=== PATIENT | male | born 1990 | race Caucasian/White ===

== ENCOUNTER 2020-12-10 08:27 | Day surgery (SDC) | payer OTHER ==
[~2020-12-10] VITALS: Ht 190.5 cm; Wt 111.3 kg
[2020-12-10] MEDS ORDERED: PROZAC40 MG PO (09:16)
[2020-12-10] MEDS ORDERED: WELLBUTRIN XL150 MG PO (09:17)
[2020-12-10] MEDS ORDERED: NEURONTIN600 MG/TAB PO (09:18)
[2020-12-10 09:21] VITALS: BP 156/87; PULSE 67; TEMP 96.4
[2020-12-10] MEDS ORDERED: NORCO 325 MG-51 TAB PO (10:57)
[2020-12-10 11:33] VITALS: BP 130/66; PULSE 64; TEMP 97.8
--- NOTE | 2020-12-10 11:33 | NUR ---
PATIENT BROUGHT BACK [place] [facility] [place] [facility] [place] [facility]. REPORT RECIEVED FROM EXCEPTIONAL NEEDS TEACHER CHRIS. PATIENT IS ALERT AND ORIENTED, AT BEDSIDE. DENIES PAIN OR NAUSEA. REQUESTS APPLEJUICE AT THIS TIME. CALL [facility] WITHIN REACH, WILL CONITNUE TO MONITOR.
[2020-12-10 11:45] VITALS: BP 131/81; PULSE 95
--- NOTE | 2020-12-10 11:45 | NUR ---
PATIENT TOLERATING FLUIDS AT THIS TIME, REQUESTS CRACKERS. INCISION TO GROIN, CDI. WILL CONTINUE TO MONITOR.
[2020-12-10 12:00] VITALS: BP 138/77; PULSE 79
[2020-12-10 12:15] VITALS: BP 136/74; PULSE 54
--- NOTE | 2020-12-10 12:15 | NUR ---
PATIENT STATES HE HAS PAIN OF 4/10 TO GROIN. STATES IT FEELS TIGHT. WILL ADMINISTER PAIN MEDICATION PER ORDERS. TOLERATING FOOD AND DRINK WITHOUT NAUSEA.
[2020-12-10 12:45] VITALS: BP 156/83; PULSE 58
--- NOTE | 2020-12-10 12:45 | NUR ---
PATIENT STATES HE NEEDS TO USE RESTROOM, AMBULATED WITHOUT DIFFICULTY. URINATED WITHOUT DIFFICULTY. WILL MONITOR.
--- NOTE | 2020-12-10 13:20 | NUR ---
PATIENT STATES HE WILL STOP BY OFFICE TO COLLECT NOTE. THIS RN WAS UNABLE TO CONTACT OFFICE IN REGARDS TO FOLLOW UP APPOINTMENT. OFFICE NUMBER PROVIDED. DISCHARGE INSTRUCTIONS REVIEWED AND SIGNED, ALL QUESTIONS ANSWERED. ADRIANA STATES PAIN IS MUCH IMPROVED.
--- NOTE | 2020-12-10 13:28 | NUR ---
PATIENT BROUGHT DOWN TO LOBBY VIA WHEEL CHAIR. PICKED PATIENT UP AT FRONT DOOR. HELPED INTO PASSENGER SEAT. ALL BELONGINGS IN HAND.
== END 2020-12-10 13:28 | disposition home or self-care (01) ==
LOC: SDCO 08:27
DX: N99.89 Other postprocedural complications and disorders of genitourinary system (principal); N50.812 Left testicular pain; F41.9 Anxiety disorder, unspecified; F42.9 Obsessive-compulsive disorder, unspecified; Z20.822 Contact with and (suspected) exposure to COVID-19; Z79.899 Other long term (current) drug therapy
CPT/HCPCS: J0690; J1100; J2405; J2704; J3010; J7120